=== PATIENT | male | born 1960 | race Caucasian/White ===

== ENCOUNTER 2017-08-26 20:21 | Emergency (ER) | payer BC, OTHER ==
[~2017-08-26] VITALS: Ht 190.5 cm; Wt 99.8 kg
[2017-08-26 20:28] VITALS: BP_SYST 152
[2017-08-26] MEDS ORDERED: NACL 0.9% 1,000 ML IV ONE (21:13)
[2017-08-26] MEDS ORDERED: KETOROLAC TROMETHAMINE 30 MG VIAL IVP ONE (21:15)
[2017-08-26] MEDS ORDERED: ONDANSETRON HCL 4 MG/2 ML VIAL IVP ONE (21:15)
[2017-08-26 21:32] LABS: BASOPHILS % (AUTO) 0.3 % (0.0-2.0); EOSINOPHILS # (AUTO) 0.1 K/uL (0.0-0.4); EOSINOPHILS % (AUTO) 1.5 % (0.0-4.0); HEMATOCRIT 46.2 % (36-54); HEMOGLOBIN 15.3 g/dL (14.0-18.0); LYMPHOCYTES # (AUTO) 2.4 K/uL (1.0-5.5); LYMPHOCYTES % (AUTO) 33.9 % (20.5-51.5); MEAN CORPUSCULAR HEMOGLOBIN 30 pg (27-31); MEAN CORPUSCULAR HGB CONC 33 % (32-36); MEAN CORPUSCULAR VOLUME 91 fL (79.0-98.0); MONOCYTES # (AUTO) 0.5 K/uL (0.0-1.0); MONOCYTES % (AUTO) 6.6 % (1.7-9.3); NEUTROPHILS # (AUTO) 4.1 K/uL (1.8-7.7); NEUTROPHILS % (AUTO) 57.7 % (40.0-70.0); PLATELET COUNT (AUTO) 213 K/uL (130-430); RED BLOOD CELL COUNT(AUTO) 5.08 MIL/uL (4.2-6.2); RED CELL DISTRIBUTION WIDTH 11.6 % (9.0-15.0); WHITE BLOOD COUNT (AUTO) 7.1 K/uL (4.8-10.8)
[2017-08-26 22:04] LABS: CALCIUM 9.1 mg/dL (8.4-11.0); CREATININE 1.12 mg/dL (0.55-1.30); POTASSIUM 4.2 mmol/L (3.5-5.1)
[2017-08-26 22:09] LABS: ALBUMIN 3.9 g/dL (3.4-4.8); TOTAL BILIRUBIN 0.4 mg/dL (0.0-1.0)
[2017-08-26 22:21] LABS: BILIRUBIN,URINE NEGATIVE (NEGATIVE); BLOOD, URINE NEGATIVE (NEGATIVE); CLARITY/URINE CLEAR (CLEAR); COLOR,URINE YELLOW (YELLOW); GLUCOSE,URINE NEGATIVE (NEGATIVE); KETONES,URINE NEGATIVE (NEGATIVE); LEUKOCYTE ESTERASE ,URINE NEGATIVE (NEGATIVE); NITRITE, URINE NEGATIVE (NEGATIVE); PROTEIN URINE NEGATIVE (NEGATIVE); UROBILINOGEN,URINE 0.2 (0.2-1.0)
[2017-08-26] MEDS ORDERED: MORPHINE 4 MG/ML INJ. SYRINGE IVP ONE (23:30)
[2017-08-26] MEDS ORDERED: DIPHENHYDRAMINE INJ 50 MG/ML VIAL IVP ONE (23:30)
[2017-08-27 00:15] VITALS: BP_SYST 129
== END 2017-08-27 00:15 | disposition home or self-care (01) ==
LOC: SED 20:21
DX: R10.9 Unspecified abdominal pain (principal); R35.0 Frequency of micturition; Z88.6 Allergy status to analgesic agent
CPT/HCPCS: 36415; 74176; 80053; 81003; 85025; 96361; 96374; 96375; 99285; J1200; J1885; J2270; J2405; J7030

== ENCOUNTER 2022-01-27 16:54 | Emergency (ER) | payer OTHER ==
[~2022-01-27] VITALS: Ht 188 cm; Wt 95.3 kg
--- NOTE | 2022-01-27 16:56 | NUR ---
Patient to ER bed 01 to gown for evaluation. Side rails up.
[2022-01-27 17:02] VITALS: BP_SYST 153
--- NOTE | 2022-01-27 17:05 | NUR ---
PT CAME IN FROM HOME C/O LEFT SIDE CHEST PAIN X 2 HOURS. RE[place]TS [place] AND SHOVELING. STATES HE DOES NOT HAVE HX OF CP OR CARDIAC. PT IS AMBULATORY, AAOX4, VSS
[2022-01-27] MEDS ORDERED: fentaNYL CITRATE/PF 100 MCG/2 ML AMP IM ONE (17:15)
[2022-01-27] MEDS ORDERED: ASPIRIN 81 MG TAB.CHEW PO ONE ×2 (17:15)
--- NOTE | 2022-01-27 17:30 | NUR ---
# 20 gauge angiocath placed to LAC. Use of asceptic technique. Opsite placed over site. Blood return noted. Blood for lab drawn from site. Flushed with 10 cc of normal saline. No evidence of infiltration noted. Patient tolerated well.
--- NOTE | 2022-01-27 17:32 | NUR ---
PORTABLE XRAY AT THE BEDSIDE
[2022-01-27 17:51] LABS: BASOPHILS % (AUTO) 0.3 % (0.0-2.0); EOSINOPHILS # (AUTO) 0.1 K/uL (0.0-0.4); EOSINOPHILS % (AUTO) 1.2 % (0.0-4.0); HEMATOCRIT 41.6 % (36-54); HEMOGLOBIN 14.8 g/dL (14.0-18.0); LYMPHOCYTES # (AUTO) 1.7 K/uL (1.0-5.5); LYMPHOCYTES % (AUTO) 21.7 % (20.5-51.5); MEAN CORPUSCULAR HEMOGLOBIN 31 pg (27-31); MEAN CORPUSCULAR HGB CONC 36 % (32-36); MEAN CORPUSCULAR VOLUME 87 fL (79.0-98.0); MONOCYTES # (AUTO) 0.5 K/uL (0.0-1.0); MONOCYTES % (AUTO) 6.4 % (1.7-9.3); NEUTROPHILS # (AUTO) 5.6 K/uL (1.8-7.7); NEUTROPHILS % (AUTO) 70.4 % (40.0-70.0); PLATELET COUNT (AUTO) 179 K/uL (130-430); RED CELL DISTRIBUTION WIDTH 12.8 % (9.0-15.0)
[2022-01-27 18:01] LABS: ANION GAP 6 (5-15); CALCIUM 8.3 mg/dL (8.4-11.0); CHLORIDE 104 mmol/L (98-107); GLUCOSE 102 mg/dL (70-99); POTASSIUM 3.8 mmol/L (3.5-5.1); SODIUM SERUM 135 mmol/L (136-145); UREA NITROGEN, BLOOD 14 mg/dL (8-21)
[2022-01-27 18:09] LABS: ALANINE AMINOTRANSFERASE 21 U/L (12-78); ASPARTATE AMINOTRANSFERASE 17 U/L (10-37); TOTAL BILIRUBIN 0.6 mg/dL (0.0-1.0)
[2022-01-27 18:10] LABS: GFR AFRICAN AMERICAN 80 mL/min (>90)
[2022-01-27] MEDS ORDERED: fentaNYL CITRATE/PF 100 MCG/2 ML AMP IVP ONE ×3 (18:15→19:15)
--- NOTE | 2022-01-27 19:19 | NUR ---
REPORT GIVEN TO RISHABH PETERSON FOR CONTINUING CARE
--- NOTE | 2022-01-27 19:38 | NUR ---
Pt HR 48-50. Pt states that his HR generally runs low. Dr. Samayoa notified and ok to give Fentanyl 100 mcg IVP as ordered.
--- NOTE | 2022-01-27 19:40 | NUR ---
PT LAYING IN BED, IN NAD. RESP EVEN AND UNLABORED, ON RA @99%. REPORTS FEELING GOOD AND WANTING TO GO HOME. PLAN OF CARE DISCUSSED WITH PT AND FAMILY AT BEDSIDE. VERBALIZED UNDERSTADING, WAITING FOR FURTHER TEST RESULTS.
[2022-01-27] MEDS ORDERED: KETOROLAC TROMETHAMINE 60 MG/2 ML VIAL IM ONE ×2 (20:44→20:45)
--- NOTE | 2022-01-27 22:39 | NUR ---
Patient given written and verbal discharge instructions and verbalizes understanding. ER MD discussed with patient the results and treatment provided. Patient in stable condition. ID arm band removed. IV catheter removed intact and dressing applied, no active bleeding. no Rx of given. Patient educated on pain management and to follow up with PMD. Pain Scale 1/10. Opportunity for questions provided and answered. Medication side effect fact sheet provided.
[2022-01-27 22:41] VITALS: BP_SYST 131
== END 2022-01-27 16:56 | disposition home or self-care (01) ==
LOC: SED 16:54
DX: R07.89 Other chest pain (principal); Z88.5 Allergy status to narcotic agent; Z88.6 Allergy status to analgesic agent
CPT/HCPCS: 36415; 71045; 80053; 83880; 84484; 85025; 85379; 93005; 96372; 96374; 96376; 99285; J1885; J3010